=== PATIENT | female | born 1995 | race Caucasian/White ===

== ENCOUNTER 2018-12-29 19:33 | Emergency (ER) | payer MEDICAID ==
[2018-12-30] MEDS: ACETAMINOPHEN 500 MG TAB PO (03:49)
[2018-12-30] MEDS: SOD CHLORIDE 0.9% 1,000 ML IV (03:58)
[2018-12-30 04:03] LABS: ADD MAN DIFF? NO; ADD UMIC NO; UR ASCORBIC ACID NEGATIVE (NEGATIVE); UR BILIRUBIN (Dip) NEGATIVE (NEGATIVE); UR BLOOD (Dip) NEGATIVE (NEGATIVE); UR CLARITY SLIGHTLY CLOUDY (CLEAR); UR COLOR YELLOW (YELLOW); UR GLUCOSE (Dip) NEGATIVE (NEGATIVE); UR KETONES (Dip) NEGATIVE (NEGATIVE); UR LEUKOCYTE ESTERASE (Dip) NEGATIVE Leu/ul (NEGATIVE); UR MUCUS FEW /HPF (NONE SEEN); UR NITRITE (Dip) NEGATIVE (NEGATIVE); UR RBC 2 /HPF (0-5); UR SPECIFIC GRAVITY (Dip) 1.024 (1.003-1.030); UR SQUAMOUS EPITHELIAL CELL FEW /HPF (FEW); UR TOTAL PROTEIN (Dip) NEGATIVE (NEGATIVE); UR UROBILINOGEN (Dip) NEGATIVE (NEGATIVE); UR WBC 2 /HPF (0-5)
[2018-12-30 04:25] LABS: WHITE BLOOD COUNT 8.2 10^3/ul (4.8-10.8)
[2018-12-30 04:25] LABS: ALANINE AMINOTRANSFERASE 15 IU/L (13-69); ALBUMIN 4.8 g/dl (3.3-4.9); ALBUMIN/GLOBULIN RATIO 1.45; ALKALINE PHOSPHATASE 76 IU/L (42-121); ANION GAP 15 (5-13); ASPARTATE AMINO TRANSFERASE 21 IU/L (15-46); BASOPHIL # 0.1 10^3/ul (0.0-0.1); BASOPHILS % 0.6 % (0.0-2.0); BILIRUBIN,INDIRECT 0.3 mg/dl (0-1.1); BILIRUBIN,TOTAL 0.3 mg/dl (0.2-1.3); BLOOD UREA NITROGEN 12 mg/dl (7-20); CARBON DIOXIDE 24 mmol/L (21-31); CHLORIDE 102 mmol/L (97-110); CREATININE 0.52 mg/dl (0.44-1.00); EOSINOPHILS # 0.1 10^3/ul (0.0-0.5); EOSINOPHILS % 0.7 % (0.0-7.0); Estimated GFR > 60 mL/min (>60); GLUCOSE 101 mg/dl (70-220); HEMATOCRIT 30.8 % (37.0-47.0); HEMOGLOBIN 9.7 g/dl (12.0-16.0); LIPASE 85 U/L (23-300); LYMPHOCYTES # 2.6 10^3/ul (0.8-2.9); LYMPHOCYTES % 31.9 % (15.0-51.0); MEAN CORPUSCULAR HEMOGLOBIN 24.3 pg (29.0-33.0); MEAN CORPUSCULAR HGB CONC 31.5 g/dl (32.0-37.0); MEAN PLATELET VOLUME 10.2 fl (7.4-10.4); MONOCYTE # 0.7 10^3/ul (0.3-0.9); MONOCYTES % 8.9 % (0.0-11.0); NEUTROPHIL # 4.7 10^3/ul (1.6-7.5); NEUTROPHILS % 57.7 % (39.0-77.0); PLATELET COUNT 292 10^3/UL (140-415); POTASSIUM 3.9 mmol/L (3.5-5.1); RED CELL DISTRIBUTION WIDTH 19.3 % (11.5-14.5); SODIUM 141 mmol/L (135-144); TOTAL PROTEIN 8.1 g/dl (6.1-8.1)
== END 2018-12-30 06:31 | disposition home or self-care (01) ==
LOC: FTE 19:33
DX: O03.4 Incomplete spontaneous abortion without complication (principal); R10.2 Pelvic and perineal pain
CPT/HCPCS: 76801; 76817; 80053; 81001; 81003; 83690; 84702; 85025; 86900; 86901; 87086; 99285-25